=== PATIENT | female | born 1970 | race Two or more races ===

== ENCOUNTER 2023-02-19 13:48 | Outpatient (CLI) | payer MEDICAID, OTHER | END 2023-02-19 23:59 | disposition home or self-care (01) | LOC: CARD DIAG 13:48 | PROVIDERS: ATTEND Internal Medicine | DX: I34.0 Nonrheumatic mitral (valve) insufficiency (principal); I34.81 Nonrheumatic mitral (valve) annulus calcification; M86.9 Osteomyelitis, unspecified | CPT/HCPCS: 93306 ==